=== PATIENT | female | born 2000 | race Hispanic/Latino ===

== ENCOUNTER 2019-01-13 23:18 | Emergency (ER) | payer OTHER ==
[~2019-01-13] VITALS: Ht 152.4 cm; Wt 67.1 kg
[2019-01-14 00:17] LABS: PREGNANCY TEST, URINE NEGATIVE (NEGATIVE)
[2019-01-14 00:23] LABS: COLOR,URINE YELLOW (YELLOW)
[2019-01-14 00:24] LABS: BILIRUBIN,URINE SMALL (NEGATIVE); KETONES,URINE NEGATIVE (NEGATIVE)
[2019-01-14 00:25] LABS: PROTEIN,URINE DIPSTICK NEGATIVE (NEGATIVE)
[2019-01-14 00:26] LABS: CLARITY,URINE CLOUDY (CLEAR); LEUKOCYTE ESTERASE ,URINE 2+ (NEGATIVE); NITRITE,URINE NEGATIVE (NEGATIVE); URINE UROBILINOGEN 0.2 mg/dL (0.2 - 1)
[2019-01-14 00:34] LABS: BACTERIA,URINE MANY /HPF; EPITHELIAL CELLS,URINE FEW /LPF
[2019-01-14 00:35] LABS: MUCUS,URINE FEW (RARE)
--- NOTE | 2019-01-14 01:13 | Diagnostic Imaging Report ---
Abdomen/KUB INDICATION: Right suprapubic pain ^abd pain ^[id number] ^0040 ^Y COMPARISON: None. FINDINGS: Medical Devices: None Bowel: Unremarkable bowel gas pattern. No dilated bowel loops. Mild to moderate burden of stool in the right colon and splenic flexure. Free air: None Abdominal calcifications: None over the renal shadows or along the expected course of the ureters Organomegaly: None Lung bases: Normal. Bones: No focal osseous lesions. Bilateral nipple jewelry is partially visualized. IMPRESSION: Unremarkable bowel gas pattern. Signed by: Dr. Vikki Varma MD on 01/14/2019 1:10 AM
== END 2019-01-14 01:00 | disposition home or self-care (01) ==
LOC: ER 23:18
DX: R10.30 Lower abdominal pain, unspecified (principal); N30.91 Cystitis, unspecified with hematuria
CPT/HCPCS: 74018; 81001; 81025; 99283

== ENCOUNTER 2019-04-26 18:19 | Emergency (ER) | payer SELFPAY ==
[~2019-04-26] VITALS: Ht 152.4 cm; Wt 67.1 kg
--- OUTSIDE RECORDS SUMMARY | 2019-04-26 18:21 | XMS REPORT ---
Author Author [facility] Address Unknown Phone Unavailable Care Team Providers Care Child Welfare Director Name Role Phone Khoi CORDON Unavailable Unavailable Problems This patient has no known problems. Allergies, Adverse Reactions, Alerts This patient has no known allergies or adverse reactions. Medications This patient has no known medications. Results Test Description Test Time Test Comments Text Results Atomic Results Result Comments ABDOMEN-1VIEW (KUB) 2019-01-14 01:08:00 [place] [id number] Patient Name: VITOR REYES MR #: [id number] : 2000 Age/Sex: 18/F Req #: [id number] Adm Physician: Ordered by: SHARON CORDON MD Report #: [id number] Location: ER Room/Bed: Procedure: [id number] DX/ABDOMEN-1VIEW (KUB) Exam Date: 01/14/19 Exam Time: 39 REPORT STATUS: Signed Abdomen/KUB INDICATION: Right suprapubic pain abd pain [id number] Y COMPARISON: None. FINDINGS: Medical Devices: None Bowel: Unremarkable bowel gas pattern. No dilated bowel loops. Mild to moderate burden of stool in the right colon and splenic flexure. Free air: None Abdominal calcifications: None over the renal shadows or along the expected course of the ureters Organomegaly: None Lung bases: Normal. Bones: No focal osseous lesions. Bilateral nipple jewelry is partially visualized. IMPRESSION: Unremarkable bowel gas pattern. Signed by: Dr. Bessie Varma MD on 01/14/2019 1:10 AM Dictated By: BESSIE VARMA MD 9 Transcribed By: ALEKS on 01/14/19109 COPY TO: SHARON CORDON MD
[2019-04-26] MEDS ORDERED: IBUPROFEN 600 MG TAB PO STA ×2 (19:11→20:59)
[2019-04-26 19:31] LABS: CLARITY,URINE SL CLOUDY (CLEAR); COLOR,URINE YELLOW (YELLOW); LEUKOCYTE ESTERASE ,URINE NEGATIVE (NEGATIVE); NITRITE,URINE NEGATIVE (NEGATIVE); PROTEIN,URINE DIPSTICK TRACE (NEGATIVE)
[2019-04-26 19:32] LABS: BILIRUBIN,URINE 1+ (NEGATIVE); KETONES,URINE NEGATIVE (NEGATIVE); URINE UROBILINOGEN 0.2 mg/dL (0.2 - 1)
[2019-04-26 19:38] LABS: BACTERIA,URINE MODERATE /HPF; EPITHELIAL CELLS,URINE MODERATE /LPF; MUCUS,URINE MODERATE (RARE); PREGNANCY TEST, URINE NEGATIVE (NEGATIVE); STREPTOCOCCUS GRP A ANTIGEN NEGATIVE (NEGATIVE); TRANSITIONAL EPI CELLS,URINE FEW; WBC,URINE (MAN) 0-5 /HPF (0-5)
[2019-04-26 19:57] LABS: INFLUENZAE A&B ANTIGEN (RAPID) NEGATIVE (NEGATIVE)
[2019-04-26] MEDS ORDERED: ACETAMINOPHEN 325 MG TAB PO ONE (21:00)
--- NOTE | 2019-04-26 21:02 | NUR ---
PATIENT GIVEN TYLENOL AND MOTRIN FOR TEMP 100.4 PRIOR TO DISCHARGE
[2019-04-26 21:03] VITALS: BP 126/79
== END 2019-04-26 21:04 | disposition home or self-care (01) ==
LOC: ER 18:19
DX: J10.1 Influenza due to other identified influenza virus with other respiratory manifestations (principal)
CPT/HCPCS: 81001; 81025; 83518; 87070; 87400; 99283

== ENCOUNTER 2022-04-08 23:02 | Emergency (ER) | payer SELFPAY ==
[~2022-04-08] VITALS: Ht 152.4 cm; Wt 67.1 kg
[2022-04-08] MEDS ORDERED: PREDNISONE 20 MG TAB PO ONE (23:30)
[2022-04-08] MEDS ORDERED: DIPHENHYDRAMINE HCL 25 MG CAP ONE (23:42)
[2022-04-08] MEDS ORDERED: FAMOTIDINE 20 MG TAB ONE (23:42)
[2022-04-08] MEDS ORDERED: DIPHENHYDRAMINE HCL 25 MG CAP PO ONE (23:45)
[2022-04-08] MEDS ORDERED: FAMOTIDINE 20 MG TAB PO ONE (23:45)
== END 2022-04-09 00:16 | disposition home or self-care (01) ==
LOC: ER 23:07
DX: R50.9 Fever, unspecified (principal); T78.40XA Allergy, unspecified, initial encounter; R20.2 Paresthesia of skin
CPT/HCPCS: 99282; J7512

== ENCOUNTER 2022-04-10 18:51 | Emergency (ER) | payer SELFPAY ==
[~2022-04-10] VITALS: Ht 152.4 cm; Wt 67.1 kg
[2022-04-10 19:29] LABS: BASOPHILS % 0.4 % (0.0-1.0); EOSINOPHILS # (AUTO) 0.1 (0.0-0.4); EOSINOPHILS % 1.8 % (0.0-6.0); HEMATOCRIT 41.1 % (34.2-44.1); HEMOGLOBIN 12.8 g/dL (12.0-16.0); LYMPHOCYTES # (AUTO) 2.6 (1.0-3.2); LYMPHOCYTES % 33.3 % (18.0-39.1); MEAN CORPUSCULAR HEMOGLOBIN 30.3 pg (28-32); MEAN CORPUSCULAR HGB CONC 31.1 g/dL (31-35); MEAN CORPUSCULAR VOLUME 97.4 fL (81-99); MONOCYTES # (AUTO) 0.5 (0.2-0.8); MONOCYTES % 6.1 % (4.4-11.3); NEUTROPHILS # (AUTO) 4.5 (2.1-6.9); NEUTROPHILS % 58.3 % (38.7-80.0); PLATELET COUNT 285 x10e3/uL (140-360); RED BLOOD COUNT 4.22 x10e6/uL (3.6-5.1); RED CELL DISTRIBUTION WIDTH 12.7 % (11.7-14.4)
[2022-04-10 19:59] LABS: ALANINE AMINOTRANSFERASE 29 IU/L (0-55); ALBUMIN 3.9 g/dL (3.5-5.0); ALKALINE PHOSPHATASE 70 IU/L (40-150); BLOOD UREA NITROGEN 11 mg/dL (7-26); BUN/CREATININE RATIO 16 (6-25); CALCIUM 8.9 mg/dL (8.4-10.2); CARBON DIOXIDE 23 mmol/L (22-29); CHLORIDE 106 mmol/L (98-107); CREATINE KINASE 59 IU/L (29-168); CREATININE, SERUM 0.69 mg/dL (0.57-1.11); GLUCOSE 110 mg/dL (74-118); SODIUM 139 mmol/L (136-145)
[2022-04-10] MEDS ORDERED: IOPAMIDOL 370 MG/ML 100 ML INFUS..BTL INJ ONE (21:05)
== END 2022-04-10 21:50 | disposition home or self-care (01) ==
LOC: ER 18:55
DX: R05.9 Cough, unspecified (principal); U07.1 COVID-19; R00.2 Palpitations; F41.9 Anxiety disorder, unspecified
CPT/HCPCS: 36415; 71045; 71260; 80053; 82550; 82553; 84484; 84702; 85025; 85379; 93005; 99284; Q9967

== ENCOUNTER 2022-05-28 17:43 | Emergency (ER) | payer SELFPAY ==
[~2022-05-28] VITALS: Ht 152.4 cm; Wt 67.1 kg
[2022-05-28 18:14] LABS: BASOPHILS # (AUTO) 0.1 (0.0-0.1); BASOPHILS % 0.6 % (0.0-1.0); EOSINOPHILS # (AUTO) 0.2 (0.0-0.4); EOSINOPHILS % 1.8 % (0.0-6.0); HEMATOCRIT 41.6 % (34.2-44.1); HEMOGLOBIN 14.1 g/dL (12.0-16.0); LYMPHOCYTES % 34.7 % (18.0-39.1); MEAN CORPUSCULAR HEMOGLOBIN 31.6 pg (28-32); MEAN CORPUSCULAR HGB CONC 33.9 g/dL (31-35); MEAN CORPUSCULAR VOLUME 93.3 fL (81-99); MONOCYTES # (AUTO) 0.6 (0.2-0.8); MONOCYTES % 6.6 % (4.4-11.3); NEUTROPHILS # (AUTO) 4.8 (2.1-6.9); NEUTROPHILS % 55.6 % (38.7-80.0); PLATELET COUNT 336 x10e3/uL (140-360); RED BLOOD COUNT 4.46 x10e6/uL (3.6-5.1); RED CELL DISTRIBUTION WIDTH 12.6 % (11.7-14.4)
[2022-05-28 18:28] LABS: ALANINE AMINOTRANSFERASE 40 IU/L (0-55); ALBUMIN 4.6 g/dL (3.5-5.0); ALBUMIN/GLOBULIN RATIO 1.1 (0.8-2.0); ALKALINE PHOSPHATASE 80 IU/L (40-150); ANION GAP 16.9 mmol/L (8-16); BLOOD UREA NITROGEN 11 mg/dL (7-26); BUN/CREATININE RATIO 15 (6-25); CALCIUM 9.4 mg/dL (8.4-10.2); CARBON DIOXIDE 21 mmol/L (22-29); CHLORIDE 108 mmol/L (98-107); CREATINE KINASE 135 IU/L (29-168); CREATININE, SERUM 0.75 mg/dL (0.57-1.11); GLUCOSE 72 mg/dL (74-118); POTASSIUM 3.9 mmol/L (3.5-5.1); SODIUM 142 mmol/L (136-145)
[2022-05-28] MEDS ORDERED: KETOROLAC TROMETHAMINE 30 MG/ML VIAL IV STA (18:31)
[2022-05-28 18:45] LABS: AMPHETAMINES SCREEN,URINE NEGATIVE (NEGATIVE); BENZODIAZEPINES SCREEN,URINE NEGATIVE (NEGATIVE); PHENCYCLIDINE SCREEN,URINE NEGATIVE (NEGATIVE)
[2022-05-28 19:41] VITALS: BP 132/60
== END 2022-05-28 19:14 | disposition home or self-care (01) ==
LOC: ER 17:50
DX: R07.9 Chest pain, unspecified (principal)
CPT/HCPCS: 36415; 71045; 80053; 80307; 81025; 82550; 82553; 83690; 83880; 84484; 85025; 85379; 93005; 99284; J1885

== ENCOUNTER 2022-07-11 13:11 | Emergency (ER) | payer SELFPAY ==
[~2022-07-11] VITALS: Ht 152.4 cm; Wt 67.1 kg
[2022-07-11] MEDS ORDERED: SODIUM CHLORIDE 0.9% 1000ML 1,000 ML IV STA (13:24)
[2022-07-11] MEDS ORDERED: ONDANSETRON HCL INJ 2MG/ML 2ML 2 MG/ML VIAL IV STA (13:24)
[2022-07-11] MEDS ORDERED: LACTATED RINGER'S 1,000 ML INJ ONE (13:30)
[2022-07-11] MEDS ORDERED: DICYCLOMINE HCL 20 MG/2 ML VIAL IM ONE (13:30)
[2022-07-11] MEDS ORDERED: ONDANSETRON HCL INJ 2MG/ML 2ML 2 MG/ML VIAL IV PRN (13:30)
[2022-07-11 13:51] LABS: BASOPHILS % 0.4 % (0.0-1.0); EOSINOPHILS # (AUTO) 0.1 (0.0-0.4); EOSINOPHILS % 1.7 % (0.0-6.0); HEMATOCRIT 37.9 % (34.2-44.1); LYMPHOCYTES # (AUTO) 2.3 (1.0-3.2); LYMPHOCYTES % 32.6 % (18.0-39.1); MEAN CORPUSCULAR HEMOGLOBIN 31.5 pg (28-32); MEAN CORPUSCULAR HGB CONC 34.3 g/dL (31-35); MEAN CORPUSCULAR VOLUME 91.8 fL (81-99); MONOCYTES # (AUTO) 0.4 (0.2-0.8); NEUTROPHILS # (AUTO) 4.1 (2.1-6.9); NEUTROPHILS % 59.2 % (38.7-80.0); PLATELET COUNT 283 x10e3/uL (140-360); RED BLOOD COUNT 4.13 x10e6/uL (3.6-5.1); RED CELL DISTRIBUTION WIDTH 12.7 % (11.7-14.4)
[2022-07-11 13:57] LABS: CLARITY,URINE CLOUDY (CLEAR); COLOR,URINE RED (YELLOW); KETONES,URINE TRACE (NEGATIVE); LEUKOCYTE ESTERASE ,URINE NEGATIVE (NEGATIVE); NITRITE,URINE NEGATIVE (NEGATIVE); PROTEIN,URINE DIPSTICK 2+ (NEGATIVE); URINE UROBILINOGEN 0.2 mg/dL (0.2 - 1)
[2022-07-11 14:08] LABS: BACTERIA,URINE FEW /HPF; RBC,URINE >50 /HPF (0-5)
[2022-07-11 14:10] LABS: ALBUMIN 4.3 g/dL (3.5-5.0); ALBUMIN/GLOBULIN RATIO 1.2 (0.8-2.0); ANION GAP 11.7 mmol/L (8-16); CALCIUM 9.2 mg/dL (8.4-10.2); CREATININE, SERUM 0.73 mg/dL (0.57-1.11); POTASSIUM 3.7 mmol/L (3.5-5.1)
[2022-07-11] MEDS ORDERED: IOPAMIDOL 370 MG/ML 100 ML INFUS..BTL INJ ONE (14:22)
[2022-07-11] MEDS ORDERED: ONDANSETRON ODT4 MG PO (15:37)
[2022-07-11] MEDS ORDERED: DICYCLOMINE HCL20 MG PO (15:37)
[2022-07-11 15:44] VITALS: BP 124/72; PULSE 84; RESP 18; O2SAT 99
== END 2022-07-11 15:47 | disposition home or self-care (01) ==
LOC: ER 13:25
DX: R11.2 Nausea with vomiting, unspecified (principal); K52.9 Noninfective gastroenteritis and colitis, unspecified; R10.33 Periumbilical pain; F41.9 Anxiety disorder, unspecified
CPT/HCPCS: 36415; 74177; 80053; 81001; 83690; 84702; 85025; 99284; J0500; J2405; J7030; J7121; Q9967

== ENCOUNTER 2022-08-06 20:53 | Emergency (ER) | payer SELFPAY ==
[~2022-08-06] VITALS: Ht 152.4 cm; Wt 67.1 kg
[~2022-08-06 20:53] MED LIST: DICYCLOMINE HCL20 MG PO; ONDANSETRON ODT4 MG PO
[2022-08-06] MEDS ORDERED: CORTISPORIN-TC10 M1 EACH EAR (21:41)
[2022-08-06 21:50] VITALS: BP 138/92; PULSE 87; RESP 16; TEMP 99.2; O2SAT 100
== END 2022-08-06 21:49 | disposition home or self-care (01) ==
LOC: ER 20:55
DX: R50.9 Fever, unspecified (principal); H60.93 Unspecified otitis externa, bilateral; F41.9 Anxiety disorder, unspecified
CPT/HCPCS: 99282

== ENCOUNTER 2022-08-09 04:52 | Emergency (ER) | payer SELFPAY ==
[~2022-08-09] VITALS: Ht 152.4 cm; Wt 67.1 kg
[~2022-08-09 04:52] MED LIST changes: +CORTISPORIN-TC10 M1 EACH EAR
[2022-08-09 05:12] VITALS: O2SAT 100
[2022-08-09] MEDS ORDERED: ULTRAM 50MG50 MG PO (05:20)
[2022-08-09] MEDS ORDERED: CIPRO500 MG PO (05:20)
== END 2022-08-09 05:22 | disposition home or self-care (01) ==
LOC: ER 05:03
DX: H60.93 Unspecified otitis externa, bilateral (principal)
CPT/HCPCS: 99283